=== PATIENT | female | born 1970 ===

== ENCOUNTER → 2023-10-23 13:54 | Outpatient (REF) | payer OTHER, SELFPAY | LOC: HWRAD 13:54 | PROVIDERS: ATTENDING PHYSICIAN Obstetrics & Gynecology; FAMILY PHYSICIAN Family Medicine | DX: R10.2 Pelvic and perineal pain (principal) | CPT/HCPCS: 76830; 76856 ==

== ENCOUNTER → 2024-06-03 15:16 | Outpatient (REF) | payer OTHER, SELFPAY | LOC: RAD 15:16 | PROVIDERS: ATTENDING PHYSICIAN Obstetrics & Gynecology; REFERRING PHYSICIAN Family Medicine | DX: N83.209 Unspecified ovarian cyst, unspecified side (principal) | CPT/HCPCS: 76830; 76856 ==

== ENCOUNTER → 2024-09-17 19:09 | Outpatient (REF) | payer OTHER, SELFPAY | LOC: RAD 19:09 | PROVIDERS: ATTENDING PHYSICIAN Chiropractor | DX: S13.4XXA Sprain of ligaments of cervical spine, initial encounter (principal); M25.519 Pain in unspecified shoulder | CPT/HCPCS: 72050; 73030 ==